=== PATIENT | female | born 1960 | race African-American/Black ===

== ENCOUNTER 2025-05-30 20:16 | Emergency (ER) | payer OTHER ==
[2025-05-30 20:26] VITALS: BMI 32.0
[2025-05-30] MEDS ORDERED: MORPHINE SULFATE 2 MG/ML SYRINGE ONE (20:56)
[2025-05-30] MEDS: morphine CARPU-JECT 2 MG/1 ML DISP.SYRIN IVPUSH ONE (21:35)
[2025-05-30 21:37] LABS: ABSOLUTE IMMATURE GRANULOCYTES 0.07 x10^3/uL (0.0-0.031); BASOPHILS # 0.14 x10^3/uL (0.01-0.08); EOSINOPHIL % 3.4 % (0.7-5.8); EOSINOPHILS # 0.45 x10^3/uL (0.04-0.36); MCHC 32.6 g/dl (32.2-35.5); MEAN CELL VOLUME 83.6 fl (79.4-94.8); MEAN PLT VOLUME 12.9 fl (9.4-12.3); MONOCYTE # 0.98 x10^3/uL (0.24-0.86); MONOCYTE % 7.4 % (4.7-12.5); RDW 13.8 % (12.4-16.4)
[2025-05-30 22:02] LABS: GLUCOSE,RANDOM 126.0 mg/dL (74-106); TOT PROT 8.0 g/dl (6.4-8.2)
[2025-05-30 22:03] LABS: CO2 24.0 mmol/L (21-32)
[2025-05-30 22:05] LABS: ALK PHOS 95.0 U/L (40-150)
[2025-05-30 22:07] LABS: SGOT/AST 21.0 U/L (5-34); SGPT/ALT 18.0 U/L (0-55)
[2025-05-30 22:08] LABS: CREATININE 1.07 mg/dL (0.55-1.3)
[2025-05-30 22:22] LABS: ERYTHROCYTE SEDIMENTATION RATE 22 mm/hr (0-30)
[2025-05-30] MEDS ORDERED: KETOROLAC TROMETHAMINE 15 MG/ML VIAL ONE (22:24)
[2025-05-30 22:30] LABS: HIV INTERPRETATION NEGATIVE (NEGATIVE)
[2025-05-30] MEDS: KETOROLAC TROMETHAMINE 15 MG/ML VIAL IVPUSH ONE (22:30)
[2025-05-30 23:33] VITALS: BP 181/76; PULSE 81; RESP 18; TEMP 97.6
[2025-05-31 12:20] LABS: HCV DIAGNOSTIC IN-HOUSE W/RFLX REACTIVE (NONREACTIVE)
== END 2025-05-31 02:53 | disposition home or self-care (01) ==
LOC: JER 20:16
PROC: 3E0333Z Introduction of Anti-inflammatory into Peripheral Vein, Percutaneous Approach (ICD-10-PCS; principal; 2025-05-30)
PROC: 3E033NZ Introduction of Analgesics, Hypnotics, Sedatives into Peripheral Vein, Percutaneous Approach (ICD-10-PCS; 2025-05-30)
DX: R60.0 Localized edema (principal); M79.631 Pain in right forearm
CPT/HCPCS: 36415; 73110-TC-RT-FY; 73130-TC-RT-FY; 80053; 83735; 85025; 85651; 86140; 86803; 87389; 87522; 93971-TC-LT; 99285-25